=== PATIENT | female | born 1950 | race Caucasian/White ===

== ENCOUNTER 2022-02-16 05:29 | Inpatient (IN) ==
[2022-01-22 13:10] LABS: Basophils % 0.5 % (0.0-0.8); Eosinophils # 0.3 10*3/uL (0.0-0.87); Eosinophils % 4.6 % (0.00-10.9); Hematocrit 43.1 VOL% (35.7-47.0); Hemoglobin 13.7 GM/DL (12.0-16.0); Immature Granulocytes % 0.4 %; Immature Granulocytes Absolute 0.02 #; Lymphocytes % 17.1 % (21.3-54.2); Mean Corpuscular HGB Conc 31.8 GM/DL (32-36); Mean Corpuscular Volume 94.1 FL (87-102); Mean Platelet Volume 10.1 FL (9.6-12.0); Monocytes # 0.7 10*3/uL (0.11-0.8); Monocytes % 12.3 % (1.7-12.7); Neutrophils % 65.1 % (38.7-73.9); Platelet Count 308 T/CUMM (130-400); Red Blood Count 4.58 MC/CUMM (3.8-5.5); Red Cell Distribution Width 15.2 % (9.3-17.3); White Blood Count 5.7 T/CUMM (4-12)
[2022-01-22 13:11] LABS: Mucus,Urine Few /LPF (Occasional); RBC,Urine <1 /HPF (0-4); Squamous Epithelial Cell,Urine Occasional /HPF (0-10); Urine Appearance Clear (Clear); Urine Color Yellow (Yellow)
[2022-01-22 13:12] LABS: Bilirubin,Urine Negative (Negative); Blood, Urine Negative (Negative); Glucose,Urine (UA) Negative (Negative); Ketones,Urine Negative (Negative); Nitrite,Urine Negative (Negative); Protein,Urine Negative (Negative); Urine Urobilinogen 0.2 eU/dL (<2.0)
[2022-01-22 13:28] LABS: INR 0.9; PT Patient Result 10.3 SECS (10.5-12.0); Partial Thromboplastin Time 23.6 SECS (23.8-32.1)
[2022-01-22 13:32] LABS: Albumin 3.6 G/DL (3.4-5.0); Bilirubin,Total 0.4 MG/DL (0.20-1.00); Calcium 9.7 MG/DL (8.5-10.1); Osmolality,Calculated 287.8 MOS/KG (273-304); Potassium 4.6 MMOL/L (3.5-5.1); Total Protein 7.2 G/DL (6.4-8.2)
[2022-02-16] MEDS ORDERED: CLINDAMYCIN INJ 900 MG/50 ML PREMIX IV ONE (06:47)
[2022-02-16] MEDS ORDERED: VANCOMYCIN 1,000 MG VIAL ONE (06:47)
[2022-02-16] MEDS: LACTATED RINGERS 1,000 ML IV SCH ×4 (07:22→22:00)
[2022-02-16] MEDS ORDERED: fentaNYL 100 MCG/2 ML VIAL ONE (09:30)
[2022-02-16] MEDS ORDERED: MIDAZOLAM 2 MG/2 ML VIAL ONE ×2 (09:30→10:58)
[2022-02-16] MEDS ORDERED: LIDOCAINE 2% 5 ML VIAL ONE (09:32)
[2022-02-16] MEDS ORDERED: DEXAMETHASONE 4 MG/1 ML VIAL ONE (09:32)
[2022-02-16] MEDS ORDERED: ROPIVACAINE 0.5% 30 ML VIAL ONE ×2 (09:32→10:01)
[2022-02-16] MEDS ORDERED: buprenorphine HCL 0.3 MG/ML VIAL ONE (10:04)
[2022-02-16] MEDS ORDERED: BUPIVACAINE MPF 0.5% 30 ML VIAL ONE (10:04)
[2022-02-16] MEDS ORDERED: DEXMEDETOMIDINE 200 MCG/2 ML VIAL ONE (10:44)
[2022-02-16] MEDS ORDERED: BACITRACIN OINT 0.9 GM PACK TOP ONE (10:44)
[2022-02-16] MEDS ORDERED: LACTATED RINGERS 1,000 ML IV ONE (12:27)
[2022-02-16] MEDS ORDERED: ONDANSETRON 4 MG/2 ML VIAL ONE (12:27)
[2022-02-16] MEDS ORDERED: TRANEXAMIC ACID 1,000 MG/10 ML VIAL ONE (12:28)
[2022-02-16] MEDS ORDERED: FUROSEMIDE 40 MG TABLET PO PRN (12:31)
[2022-02-16] MEDS ORDERED: ONDANSETRON 4 MG/2 ML VIAL IV PRN (12:33)
[2022-02-16] MEDS ORDERED: MORPHINE 2 MG/1 ML SYRINGE IV PRN ×2 (12:33)
[2022-02-16] MEDS ORDERED: MAGNESIUM HYDROXIDE SUSP 30 ML UDCUP PO PRN (12:33)
[2022-02-16] MEDS ORDERED: SCOPOLAMINE 1.5 MG PATCH TRANSDERM ONE ×2 (12:49→13:25)
[2022-02-16 13:13] LABS: Mucus,Urine Occasional /LPF (Occasional); RBC,Urine <1 /HPF (0-4); Squamous Epithelial Cell,Urine Occasional /HPF (0-10)
[2022-02-16 13:16] LABS: Protein,Urine Negative (Negative); Urine Appearance Clear (Clear); Urine Color Yellow (Yellow); Urine Specific Gravity >= 1.030 (1.001-1.035)
[2022-02-16 13:17] LABS: Bilirubin,Urine Negative (Negative); Blood, Urine Negative (Negative); Glucose,Urine (UA) Negative (Negative); Ketones,Urine Negative (Negative); Nitrite,Urine Negative (Negative); Urine Urobilinogen < 2.0 eU/dL (<2.0)
[2022-02-16] MEDS: CLINDAMYCIN INJ 900 MG/50 ML PREMIX IV SCH (17:12)
[2022-02-16] MEDS: KETOROLAC 30 MG/1 ML VIAL IV SCH ×2 (17:16→21:59)
[2022-02-16] MEDS ORDERED: VANCOMYCIN INJ 1,000 MG in SODIUM CHLORIDE 0.9% 250 ML IV ONE (20:33)
[2022-02-16] MEDS: DOCUSATE SODIUM 100 MG CAPSULE PO SCH (20:55)
[2022-02-16] MEDS: GABAPENTIN 100 MG CAPSULE PO SCH (20:55)
[2022-02-16] MEDS: METOPROLOL TARTRATE 25 MG TABLET PO SCH (22:00)
[2022-02-17] MEDS: CLINDAMYCIN INJ 900 MG/50 ML PREMIX IV SCH ×3 (01:58→17:20)
[2022-02-17] MEDS: KETOROLAC 30 MG/1 ML VIAL IV SCH ×3 (01:58→06:31)
[2022-02-17] MEDS: LACTATED RINGERS 1,000 ML IV SCH (05:46)
[2022-02-17] MEDS: LEVOTHYROXINE 88 MCG TABLET PO SCH (05:46)
[2022-02-17 06:22] LABS: Basophils % 0.2 % (0.0-0.8); Eosinophils % 0.5 % (0.00-10.9); Hematocrit 34.5 VOL% (35.7-47.0); Hemoglobin 10.9 GM/DL (12.0-16.0); Immature Granulocytes % 0.4 %; Immature Granulocytes Absolute 0.02 #; Lymphocytes # 0.4 10*3/uL (1.4-4.0); Lymphocytes % 6.9 % (21.3-54.2); Mean Corpuscular HGB Conc 31.6 GM/DL (32-36); Mean Corpuscular Volume 94.5 FL (87-102); Mean Platelet Volume 10.1 FL (9.6-12.0); Monocytes % 18.4 % (1.7-12.7); Neutrophils % 73.6 % (38.7-73.9); Platelet Count 176 T/CUMM (130-400); Red Blood Count 3.65 MC/CUMM (3.8-5.5); Red Cell Distribution Width 15.5 % (9.3-17.3); White Blood Count 5.5 T/CUMM (4-12)
[2022-02-17 06:48] LABS: Lymphocytes 11 % (20-55); Platelet Estimate Adequate; Total Cells Counted 100
[2022-02-17 06:54] LABS: Calcium 8.4 MG/DL (8.5-10.1); Osmolality,Calculated 288.3 MOS/KG (273-304); Potassium 4.7 MMOL/L (3.5-5.1)
[2022-02-17] MEDS ORDERED: FONDAPARINUX 2.5 MG/0.5 ML SYRINGE SUBCUT SCH (08:00)
[2022-02-17] MEDS ORDERED: LOSARTAN 50 MG TABLET PO SCH (09:00)
[2022-02-17] MEDS ORDERED: CHLORTHALIDONE 25 MG TABLET PO SCH (09:00)
[2022-02-17] MEDS: DOCUSATE SODIUM 100 MG CAPSULE PO SCH ×2 (09:12→20:52)
[2022-02-17] MEDS: GABAPENTIN 100 MG CAPSULE PO SCH ×2 (09:12→20:52)
[2022-02-17] MEDS: FOLIC ACID 1 MG TABLET PO SCH (09:12)
[2022-02-17] MEDS: CHOLECALCIFEROL 1,000 UNIT TABLET PO SCH (09:15)
[2022-02-17] MEDS ORDERED: LACTATED RINGERS 500 ML IV ONE (11:03)
[2022-02-17] MEDS ORDERED: ACETAMINOPHEN 325 MG TABLET PO PRN (16:41)
[2022-02-17] MEDS: METOPROLOL TARTRATE 25 MG TABLET PO SCH (20:02)
[2022-02-18] MEDS: CLINDAMYCIN INJ 900 MG/50 ML PREMIX IV SCH ×4 (01:48→16:23)
[2022-02-18] MEDS: LEVOTHYROXINE 88 MCG TABLET PO SCH (05:58)
[2022-02-18 06:06] LABS: Basophils % 0.3 % (0.0-0.8); Eosinophils # 0.1 10*3/uL (0.0-0.87); Eosinophils % 2.1 % (0.00-10.9); Hematocrit 30.9 VOL% (35.7-47.0); Immature Granulocytes % 0.3 %; Immature Granulocytes Absolute 0.02 #; Lymphocytes # 0.8 10*3/uL (1.4-4.0); Lymphocytes % 13.2 % (21.3-54.2); Mean Corpuscular HGB Conc 32.4 GM/DL (32-36); Mean Corpuscular Volume 93.9 FL (87-102); Mean Platelet Volume 10.9 FL (9.6-12.0); Monocytes # 0.8 10*3/uL (0.11-0.8); Monocytes % 13.3 % (1.7-12.7); Neutrophils % 70.8 % (38.7-73.9); Platelet Count 175 T/CUMM (130-400); Red Blood Count 3.29 MC/CUMM (3.8-5.5); Red Cell Distribution Width 15.7 % (9.3-17.3); White Blood Count 5.8 T/CUMM (4-12)
[2022-02-18 06:31] LABS: Calcium 8.4 MG/DL (8.5-10.1); Osmolality,Calculated 287.5 MOS/KG (273-304); Potassium 4.1 MMOL/L (3.5-5.1)
[2022-02-18] MEDS ORDERED: PANTOPRAZOLE 40 MG TABLET PO SCH (09:00)
[2022-02-18] MEDS: APIXABAN 2.5 MG TABLET PO SCH ×2 (09:03→20:25)
[2022-02-18] MEDS: DOCUSATE SODIUM 100 MG CAPSULE PO SCH ×2 (09:03→20:25)
[2022-02-18] MEDS: GABAPENTIN 100 MG CAPSULE PO SCH ×2 (09:03→20:25)
[2022-02-18] MEDS: CHOLECALCIFEROL 1,000 UNIT TABLET PO SCH (09:03)
[2022-02-18] MEDS: FOLIC ACID 1 MG TABLET PO SCH (09:03)
[2022-02-18] MEDS: LACTATED RINGERS 1,000 ML IV SCH ×2 (15:27→20:29)
[2022-02-18] MEDS: METOPROLOL TARTRATE 25 MG TABLET PO SCH (20:26)
[2022-02-19] MEDS: CLINDAMYCIN INJ 900 MG/50 ML PREMIX IV SCH (01:27)
[2022-02-19] MEDS: LEVOTHYROXINE 88 MCG TABLET PO SCH (05:25)
[2022-02-19 06:14] LABS: Basophils % 0.2 % (0.0-0.8); Eosinophils # 0.2 10*3/uL (0.0-0.87); Eosinophils % 3.4 % (0.00-10.9); Hematocrit 28.6 VOL% (35.7-47.0); Hemoglobin 9.3 GM/DL (12.0-16.0); Immature Granulocytes % 0.2 %; Immature Granulocytes Absolute 0.01 #; Lymphocytes # 0.5 10*3/uL (1.4-4.0); Lymphocytes % 9.4 % (21.3-54.2); Mean Corpuscular HGB Conc 32.5 GM/DL (32-36); Mean Corpuscular Volume 93.8 FL (87-102); Mean Platelet Volume 10.8 FL (9.6-12.0); Monocytes # 0.8 10*3/uL (0.11-0.8); Monocytes % 15.2 % (1.7-12.7); Neutrophils % 71.6 % (38.7-73.9); Platelet Count 164 T/CUMM (130-400); Red Blood Count 3.05 MC/CUMM (3.8-5.5); Red Cell Distribution Width 15.5 % (9.3-17.3); White Blood Count 5.5 T/CUMM (4-12)
[2022-02-19 06:46] LABS: Eosinophils 5 % (0-10); Lymphocytes 9 % (20-55); Platelet Estimate Adequate
[2022-02-19 06:47] LABS: Total Cells Counted 100
[2022-02-19] MEDS: GABAPENTIN 100 MG CAPSULE PO SCH (08:07)
[2022-02-19] MEDS: APIXABAN 2.5 MG TABLET PO SCH (08:07)
[2022-02-19] MEDS: CHOLECALCIFEROL 1,000 UNIT TABLET PO SCH (08:07)
[2022-02-19] MEDS: DOCUSATE SODIUM 100 MG CAPSULE PO SCH (08:07)
[2022-02-19] MEDS: FOLIC ACID 1 MG TABLET PO SCH (08:10)
[2022-02-19 08:17] LABS: Calcium 8.2 MG/DL (8.5-10.1); Osmolality,Calculated 292.4 MOS/KG (273-304); Potassium 4.4 MMOL/L (3.5-5.1)
[2022-02-19] MEDS: LACTATED RINGERS 1,000 ML IV SCH (09:57)
[2022-02-19 15:48] VITALS: BP 104/39
== END 2022-02-19 16:00 | disposition home health service (06) | DRG 470 ==
LOC: N.SDSINP 05:29 → N.3E 14:58
PROVIDERS: ADMIT Orthopaedic Surgery; ATTEND Orthopaedic Surgery